=== PATIENT | female | born 1990 | race American Indian/Alaskan Native ===

== ENCOUNTER 2018-06-27 21:00 | Emergency (ER) | payer MEDICAID ==
[2018-06-27 21:12] VITALS: BP 111/76
--- NOTE | 2018-06-27 21:17 | Emergency Department Report ---
Blank Doc - Documentation Documentation: This is a 27-year-old female that presents with pelvic pain, vaginal itching and discharge. This initial assessment/diagnostic orders/clinical plan/treatment(s) is/are subject to change based on patient's health status, clinical progression and re- assessment by fellow clinical providers in the ED. Further treatment and workup at subsequent clinical providers discretion. Patient/guardians urged not to elope from the ED as their condition may be serious if not clinically assessed and managed. Initial orders include: 1- Patient sent to [facility] for further evaluation and treatment 2- UA 3- wet prep/GC
[2018-06-27 22:11] LABS: Bacteria,Urine 3+ /HPF (Negative); Bilirubin,Urine NEG (Negative); Blood,Urine NEG (Negative); Color,Urine Yellow (Yellow); Mucus,Urine FEW /HPF; Protein,Urine <15 mg/dL mg/dL (Negative); Urobilinogen,Urine < 2.0 mg/dL (<2.0)
--- NOTE | 2018-06-28 00:50 | Emergency Department Report ---
ED Female HPI - General Chief complaint: Urogenital-Female Stated complaint: VAGINAL PAIN ITCHING CRAMPING Time Seen by Provider: 06/27/18 21:16 Source: patient Mode of arrival: Ambulatory Limitations: No Limitations - History of Present Illness Initial comments: 27-year-old -[place] female comes in reporting abdominal cramps and vaginal pain and itching 3 weeks. Patient denies any discharge. Patient does admit to vaginal irritation. Patient endorsed to me that her had tested positive for chlamydia. Patient denies any fever or chills. She does admit to mild dysuria. She has no known drug allergies currently takes no medications on a daily basis. MD Complaint: pelvic pain, possible STD -: week(s) (3) Location: perineum, suprapubic Severity scale (0 -10): 3 Quality: sharp Consistency: intermittent Improves with: none Worsens with: none Are you Now?: No Associated Symptoms: denies: vaginal bleeding, nausea/vomiting, fever/chills, loss of appetite, hematuria - Related Data Sexually active: Yes : 2 Para: 2 Previous Rx's Medication Instructions Recorded Last Taken Type Terconazole [Terazol 7] 7 applic VG QHS 7 Days #7 06/28/18 Unknown Rx cream.[email or web address] Allergies Allergy/AdvReac Type Severity Reaction Status Date / Time acetaminophen [From Tylenol] Allergy Hives Verified 03/28/18 14:59 ED Review of Systems ROS: Stated complaint: VAGINAL PAIN ITCHING CRAMPING Other details as noted in HPI Comment: All other systems reviewed and negative ED Past Medical Hx - Past Medical History Previous Medical History?: No - Surgical History Past Surgical History?: Yes Additional Surgical History: c section - Social History Smoking Status: Never Smoker Substance Use Type: None - Medications Home Medications: Home Medications Medication Instructions Recorded Confirmed Last Taken Type Terconazole [Terazol 7] 7 applic VG QHS 7 Days #7 06/28/18 Unknown Rx cream.[email or web address] ED Physical Exam - General Limitations: No Limitations General appearance: alert, in no apparent distress - Head Head exam: Present: atraumatic, normocephalic - Eye Eye exam: Present: normal appearance - ENT ENT exam: Present: mucous membranes moist - Neck Neck exam: Present: normal inspection - GI/Abdominal GI/Abdominal exam: Present: soft, normal bowel sounds. Absent: distended, tenderness, guarding, rebound - External exam: Present: erythema Speculum exam: Present: normal speculum exam Bi-manual exam: Present: normal bi-manual exam. Absent: cervical motion tendernes, adnexal tenderness, adnexal mass - Extremities Exam Extremities exam: Present: normal inspection, full ROM - Back Exam Back exam: Present: normal inspection - Neurological Exam Neurological exam: Present: alert, oriented X3 - Psychiatric Psychiatric exam: Present: normal affect, normal mood - Skin Skin exam: Present: warm, dry, intact, normal color. Absent: rash ED Course Vital Signs 06/27/18 21:11 Temperature 97.6 F Pulse Rate 90 Respiratory 16 Rate Blood Pressure 111/76 [Right] O2 Sat by Pulse 96 Oximetry ED Medical Decision Making - Medical Decision Making Patient has been evaluated by this provider in [facility]. Pelvic exam with cultures obtained and sent to lab. We'll treat patient for gonorrhea and and chlamydia with Rocephin 250 mg IM and a Zithromax and 1 g by mouth Critical care attestation.: If time is entered above; I have spent that time in minutes in the direct care of this critically ill patient, excluding procedure time. ED Disposition Clinical Impression: Exposure to STD Vaginitis Qualifiers: Chronicity: acute Qualified Code(s): N76.0 - Acute vaginitis Disposition: - TO HOME OR SELFCARE Is pt being admited?: No Does the pt Need Aspirin: No Condition: Stable Instructions: Vulvovaginal Candidiasis (ED), Chlamydia Infection (ED), Safe Sex (ED), Sexually Transmitted Diseases (ED) Additional Instructions: Please use medication as prescribed. I recommend to follow-up at the health department for HIV, hepatitis C, hepatitis B, syphilis, herpes screening. Prescriptions: Terconazole [Terazol 7] 7 applic VG QHS 7 Days #7 cream.[email or web address] Referrals: JAYANT GAFFNEY MD [Primary Care Provider] - 3-5 Days Forms: Accompanied Note
[2018-06-28] MEDS ORDERED: XYLOCAINE 1% MPF 5 mL INFILTRATI ONE (01:36)
[2018-06-28] MEDS ORDERED: ZITHROMAX PO ONE (01:36)
[2018-06-28] MEDS ORDERED: ROCEPHIN IM ONE (01:36)
== END 2018-06-28 02:25 | disposition home or self-care (01) ==
LOC: ED 21:00
DX: N76.0 Acute vaginitis (principal); B96.89 Other specified bacterial agents as the cause of diseases classified elsewhere; Z20.2 Contact with and (suspected) exposure to infections with a predominantly sexual mode of transmission; Z88.8 Allergy status to other drugs, medicaments and biological substances
CPT/HCPCS: 81001; 87210; 87591; 96372; 99284; J0696